=== PATIENT | female | born 1965 | race African-American/Black ===

== ENCOUNTER 2019-06-21 07:00 | Emergency (ER) | payer MEDICAID ==
[~2019-06-21] VITALS: Ht 175.3 cm; Wt 128.8 kg
[2019-06-21 07:05] VITALS: BP 159/79; Ht 175.3 cm; Wt 128.8 kg
== END 2019-06-21 08:58 | disposition home or self-care (01) ==
LOC: ED 07:00
DX: M25.561 Pain in right knee (principal); I10 Essential (primary) hypertension; E11.9 Type 2 diabetes mellitus without complications

== ENCOUNTER 2019-08-20 06:58 | Emergency (ER) | payer MEDICAID ==
[~2019-08-20] VITALS: Ht 177.8 cm; Wt 80.7 kg
[2019-08-20 07:09] VITALS: BP 164/74
== END 2019-08-20 08:15 | disposition home or self-care (01) ==
LOC: ED 06:58
DX: G89.29 Other chronic pain (principal); E11.9 Type 2 diabetes mellitus without complications; Z76.0 Encounter for issue of repeat prescription
CPT/HCPCS: 82962

== ENCOUNTER 2020-10-19 12:38 | Emergency (ER) | payer OTHER ==
[~2020-10-19] VITALS: Ht 175.3 cm; Wt 123.8 kg
[2020-10-19 12:43] VITALS: Ht 175.3 cm; Wt 123.8 kg
[2020-10-19 13:38] LABS: BASOPHIL % 1.3 % (0.2-1.3); PLATELET COUNT 317 x10^3mcL (179-408); RED CELL DISTRIBUTION WIDTH 14.2 % (12.3-17.7)
[2020-10-19 13:40] LABS: CARBON DIOXIDE 30.4 mmol/L (21-32); CHLORIDE SERUM 100 mmol/L (98-107); CREATININE SERUM 0.8 mg/dL (0.6-1.0); GFR1 > 60 mL/min; GLUCOSE SERUM 223 mg/dL (74-106); POTASSIUM SERUM 3.8 mmol/L (3.5-5.1); SODIUM SERUM 137 mmol/L (136-145)
[2020-10-19 13:45] LABS: ALKALINE PHOSPHATASE 109 U/L (46-116); ALT/SGPT 25 U/L (14-59); AST/SGOT 14 U/L (15-37); BILIRUBIN TOTAL 0.2 mg/dL (0.20-1.00); TOTAL PROTEIN, SERUM 7.3 g/dL (6.4-8.2)
[2020-10-19 13:57] LABS: ALBUMIN 3.1 g/dL (3.4-5.0)
[2020-10-19] MEDS ORDERED: CEPHALEXIN500 MG PO (15:07)
[2020-10-19] MEDS ORDERED: MOT600 PO (15:07)
[2020-10-19 15:19] VITALS: BP 154/48
== END 2020-10-19 15:19 | disposition home or self-care (01) ==
LOC: ED 12:38
PROVIDERS: Emergency Medicine
DX: R07.89 Other chest pain (principal); R59.0 Localized enlarged lymph nodes; I10 Essential (primary) hypertension; E11.9 Type 2 diabetes mellitus without complications